=== PATIENT | female | born 1950 | race Hispanic/Latino ===

== ENCOUNTER 2024-02-22 16:34 | Emergency (ER) | payer MEDICARE, OTHER ==
[~2024-02-22] VITALS: Ht 152.4 cm; Wt 59.4 kg
[2024-02-22 16:47] VITALS: PULSE 75; RESP 18; TEMP 98.3; O2SAT 100
[2024-02-22 17:59] LABS: ANION GAP 21.6 mmol/L (8-16); CALCIUM 10.2 mg/dL (8.4-10.2); CREATININE, SERUM 1.33 mg/dL (0.57-1.11); POTASSIUM 4.6 mmol/L (3.5-5.1)
== END 2024-02-22 18:44 | disposition home or self-care (01) ==
LOC: ER 17:40
DX: Z03.89 Encounter for observation for other suspected diseases and conditions ruled out (principal); I10 Essential (primary) hypertension; E11.9 Type 2 diabetes mellitus without complications; E03.9 Hypothyroidism, unspecified; K21.9 Gastro-esophageal reflux disease without esophagitis
CPT/HCPCS: 36415; 80048; 93005; 99283